=== PATIENT | female | born 1995 | race Two or more races ===

== ENCOUNTER → 2024-07-11 | Outpatient (REF) | payer OTHER | LOC: M SFHCWAGY 15:03 | PROVIDERS: ATTEND Obstetrics & Gynecology | DX: R82.90 Unspecified abnormal findings in urine (principal) ==

== ENCOUNTER 2024-08-01 21:45 | Outpatient (CLI) | payer OTHER ==
[~2024-08-01] VITALS: Ht 154.9 cm; Wt 80.6 kg
[2024-08-01 22:02] VITALS: BP 112/70
[2024-08-01] MEDS ORDERED: PRENTAB9 (22:08)
== END 2024-08-01 22:49 | disposition home or self-care (01) ==
LOC: M LDO 21:45
PROVIDERS: ATTEND Specialist
DX: O36.8130 Decreased fetal movements, third trimester, not applicable or unspecified (principal); O36.5930 Maternal care for other known or suspected poor fetal growth, third trimester, not applicable or unspecified; O24.410 Gestational diabetes mellitus in pregnancy, diet controlled; O28.8 Other abnormal findings on antenatal screening of mother; Z3A.34 34 weeks gestation of pregnancy
CPT/HCPCS: 59025; 76815; 76819; 76820; G0463

== ENCOUNTER → 2024-08-01 | Outpatient (CLI) | payer OTHER ==
[~2024-08-01] MED LIST: PRENTAB9
== END ==
LOC: M WHC 15:08
PROVIDERS: ATTEND Obstetrics & Gynecology
DX: O28.8 Other abnormal findings on antenatal screening of mother (principal); Z3A.34 34 weeks gestation of pregnancy

== ENCOUNTER → 2024-08-07 | Outpatient (REF) | payer OTHER | LOC: M PLALAB 12:01 | PROVIDERS: ATTEND Obstetrics & Gynecology | DX: Z34.03 Encounter for supervision of normal first pregnancy, third trimester (principal); Z36.85 Encounter for antenatal screening for Streptococcus B ==

== ENCOUNTER 2024-08-14 13:47 | Inpatient (IN) | payer OTHER ==
[~2024-08-14] VITALS: Ht 154.9 cm; Wt 80.2 kg
[2024-08-14 14:09] VITALS: BP 118/75
[2024-08-14] MEDS ORDERED: METHYLERGONOVINE MALEATE 0.2MG/ML 1ML VIAL IM PRN (14:25)
[2024-08-14] MEDS ORDERED: LIDOCAINE 1% MDV 20ML VIAL INFIL PRN (14:25)
[2024-08-14] MEDS ORDERED: OXYTOCIN DRIP 30 UNITS in IV 1 EA IV PRN (14:25)
[2024-08-14] MEDS ORDERED: TRANEXAMIC ACID INJection 1,000 MG in NS 100 ML IV PRN (14:25)
[2024-08-14] MEDS ORDERED: CARBOPROST TROMETHAMINE 250 MCG/ML AMP IM PRN (14:25)
[2024-08-14] MEDS ORDERED: OXYTOCIN INJ 10UNITS/ML 1ML VIAL IM PRN (14:25)
[2024-08-14 14:48] LABS: HEMATOCRIT 35.3 % (36.0-47.0); HEMOGLOBIN 11.4 g/dl (12.0-15.5); MEAN CORPUSCULAR HEMOGLOBIN 29.5 pg (27.0-33.0); MEAN CORPUSCULAR HGB CONC 32.3 g/dl (32.0-36.5); MEAN CORPUSCULAR VOLUME 91.5 fl (80.0-96.0); PLATELET COUNT, AUTOMATED 253 10^3/uL (150-450); RED BLOOD COUNT 3.86 10^6/uL (4.00-5.40); WHITE BLOOD COUNT 6.5 10^3/uL (4.0-10.0)
[2024-08-14 15:48] LABS: HIV 1&2 SCREEN NEGATIVE (NEGATIVE)
[2024-08-14 15:57] LABS: HEPATITIS C VIRUS ABY INDEX 0.04 INDEX (<0.8)
[2024-08-14 16:49] VITALS: BP 108/58
[2024-08-14] MEDS: BETAMETHASONE SOLUSPAN 6MG/ML 5ML VIAL IM SCH (16:50)
[2024-08-14] MEDS: miSOPROStol 50MCG 1/2 TABLET PO SCH (16:50)
[2024-08-14 19:49] VITALS: BP 123/78
[2024-08-14 21:16] VITALS: BP 95/56
[2024-08-14 23:43] VITALS: BP 110/60
[2024-08-15] VITALS (41 sets, daily range): BP systolic 86–125; BP diastolic 53–80
[2024-08-15] MEDS: LR 1,000 ML IV SCH (10:48)
[2024-08-15] MEDS: OXYTOCIN DRIP 30 UNITS in IV 1 EA IV SCH (10:48)
[2024-08-15] MEDS: LACTATED RINGER'S 1000 ML IV STA (15:39)
[2024-08-15] MEDS ORDERED: EPIDURAL/PCA KEYS XX PRN (16:25)
[2024-08-15] MEDS ORDERED: FENTANYL 2MCG/ML ROPIVACAINE 0.2% IN 0.9% NACL 100ML IVBAG As Ordered ONE (16:25)
[2024-08-15] MEDS ORDERED: ONDANSETRON 4MG 2ML VIAL IV PRN (16:25)
[2024-08-15] MEDS ORDERED: NALOXONE INJ 0.4MG/1ML VIAL IV PRN (16:25)
[2024-08-15] MEDS ORDERED: diphenhydrAMINE 50MG/ML VIAL IV PRN (16:25)
[2024-08-15] MEDS ORDERED: LR 500 ML IV PRN (16:25)
[2024-08-15] MEDS ORDERED: ePHEDrine SULFATE 25 MG/5 ML(5MG/ML) SYRINGE IVP PRN (16:25)
[2024-08-15] MEDS: FENTANYL/ROPIVACAINE/NACL BAG 100 ML EPIDURAL SCH (16:52)
[2024-08-15] MEDS ORDERED: MOM 30ML SUSPENSION UDC PO PRN (21:25)
[2024-08-15] MEDS ORDERED: ACETAMINOPHEN 500 MG TAB PO PRN (21:25)
[2024-08-15] MEDS ORDERED: RHOGAM 300MCG (1500IU) INJ IM SCH (21:25)
[2024-08-15] MEDS ORDERED: ANUSOL HC CREAM 30GM TOP PRN (21:25)
[2024-08-15] MEDS ORDERED: IBUPROFEN 800 MG TAB PO PRN (21:25)
[2024-08-15] MEDS ORDERED: DIBUCAINE 1% OINTMENT 30GM TOP PRN (21:25)
[2024-08-15 21:27] LABS: CORD GAS ABE A -5.4; CORD GAS HCO3 A 22.7 MMOL/L; CORD GAS O2 SAT A 28.4 %; CORD GAS PCO2 A 53.5 mmHg; CORD GAS PH A 7.246 UNITS; CORD GAS PO2 A 16.2 mmHg; CORD GAS SBC A 18.4 MMOL/L; CORD GAS TCO2 A 24.4 MMOL/L
[2024-08-15 21:28] LABS: CORD GAS ABE V -2.9; CORD GAS HCO3 V 24.6 MMOL/L; CORD GAS O2 SAT V 33.2 %; CORD GAS PCO2 V 52.4 mmHg; CORD GAS PH V 7.289 UNITS; CORD GAS PO2 V 16.6 mmHg; CORD GAS SBC V 20.3 MMOL/L; CORD GAS TCO2 V 26.2 MMOL/L
[2024-08-16 00:24] VITALS: BP 113/70; O2SAT 99
[2024-08-16 06:00] VITALS: BP 113/63; O2SAT 97
[2024-08-16] MEDS: DOCUSATE SODIUM 100MG CAPSULE PO SCH (08:07)
[2024-08-16] MEDS: PRENATAL VITAMINS CHEWABLE TABLET PO SCH (08:07)
[2024-08-16 18:00] VITALS: BP 96/65; O2SAT 100
[2024-08-17 05:58] VITALS: BP 112/61; O2SAT 99
[2024-08-17] MEDS ORDERED: MEASLES,MUMPS,RUBELLA VACCINE INJ (MMR-II) SC.IMMUN ONE (09:00)
== END 2024-08-17 15:55 | disposition home or self-care (01) | DRG 807 ==
LOC: M LDI 13:47 → M OBS 08-16 00:15
PROVIDERS: ADMIT Advanced Practice Midwife; ATTEND Advanced Practice Midwife
PROC: 3E0P7GC Introduction of Other Therapeutic Substance into Female Reproductive, Via Natural or Artificial Opening (ICD-10-PCS; 2024-08-14)
PROC: 10E0XZZ Delivery of Products of Conception, External Approach (ICD-10-PCS; principal; 2024-08-15)
DX: O40.3XX0 Polyhydramnios, third trimester, not applicable or unspecified (principal); Z37.0 Single live birth; Z3A.36 36 weeks gestation of pregnancy; O24.410 Gestational diabetes mellitus in pregnancy, diet controlled; O36.5990 Maternal care for other known or suspected poor fetal growth, unspecified trimester, not applicable or unspecified; O32.6XX0 Maternal care for compound presentation, not applicable or unspecified

== ENCOUNTER 2025-05-01 12:09 | Emergency (ER) | payer OTHER ==
[~2025-05-01] VITALS: Ht 160 cm; Wt 71.3 kg
[2025-05-01 12:16] VITALS: TEMP 96.7
[2025-05-01] MEDS: ACETAMINOPHEN 500 MG TAB PO ONE (16:48)
[2025-05-01 17:26] LABS: HCG, SERUM QUALITATIVE NEGATIVE (NEGATIVE)
[2025-05-01 19:30] VITALS: BP 103/73; O2SAT 98
== END 2025-05-01 20:18 | disposition home or self-care (01) ==
LOC: M ED 12:09
DX: R07.89 Other chest pain (principal); S13.4XXA Sprain of ligaments of cervical spine, initial encounter; S33.5XXA Sprain of ligaments of lumbar spine, initial encounter; S46.911A Strain of unspecified muscle, fascia and tendon at shoulder and upper arm level, right arm, initial encounter; S46.912A Strain of unspecified muscle, fascia and tendon at shoulder and upper arm level, left arm, initial encounter; S86.911A Strain of unspecified muscle(s) and tendon(s) at lower leg level, right leg, initial encounter; S86.912A Strain of unspecified muscle(s) and tendon(s) at lower leg level, left leg, initial encounter; V47.5XXA Car driver injured in collision with fixed or stationary object in traffic accident, initial encounter; Y92.410 Unspecified street and highway as the place of occurrence of the external cause; Y93.89 Activity, other specified; Y99.9 Unspecified external cause status